=== PATIENT | female | born 1955 | race Caucasian/White ===

== ENCOUNTER 2016-11-04 18:24 | Emergency (ER) | payer OTHER ==
[~2016-11-04] VITALS: Ht 162.6 cm; Wt 88.0 kg
[2016-11-04 20:57] LABS: BASOPHIL % 0.4 % (0-2); PLATELET COUNT 219 x10^3mcL (130-400)
[2016-11-04 21:22] LABS: CALCIUM 8.9 mg/dL (8.5-10.1); CARBON DIOXIDE 25.7 mmol/L (21-32); CHLORIDE SERUM 107 mmol/L (98-107); CREATININE SERUM 0.4 mg/dL (0.6-1.0); GFR1 > 60 mL/min; GLUCOSE SERUM 96 mg/dL (74-106); POTASSIUM SERUM 3.2 mmol/L (3.5-5.1); SODIUM SERUM 140 mmol/L (136-145)
[2016-11-04 21:28] LABS: ALBUMIN 3.4 g/dL (3.4-5.0); ALKALINE PHOSPHATASE 89 U/L (46-116); ALT/SGPT 15 U/L (14-59); AST/SGOT 12 U/L (15-37); BILIRUBIN TOTAL 0.18 mg/dL (0.20-1.00); CHOLESTEROL 139 mg/dL (<200); TOTAL PROTEIN, SERUM 6.9 g/dL (6.4-8.2)
[2016-11-04 23:32] VITALS: BP 129/72
== END 2016-11-04 23:32 | disposition home or self-care (01) ==
LOC: ED 18:24
PROVIDERS: Specialist
DX: R51 Headache (principal); I10 Essential (primary) hypertension; R42 Dizziness and giddiness; F31.9 Bipolar disorder, unspecified; Z85.3 Personal history of malignant neoplasm of breast; Z90.89 Acquired absence of other organs
CPT/HCPCS: 83880; G0480; J1885; J2405; J3010; J7030

== ENCOUNTER 2019-11-30 01:02 | Emergency (ER) | payer OTHER ==
[2019-11-30 02:23] LABS: BASOPHIL % 1.1 % (0-2); PLATELET COUNT 170 x10^3mcL (130-400); RED CELL DISTRIBUTION WIDTH 14.5 % (11.5-14.5)
[2019-11-30 02:39] LABS: CALCIUM 8.5 mg/dL (8.5-10.1); CARBON DIOXIDE 20.3 mmol/L (21-32); CHLORIDE SERUM 109 mmol/L (98-107); CREATININE SERUM 0.6 mg/dL (0.6-1.0); GFR1 > 60 mL/min; GLUCOSE SERUM 111 mg/dL (74-106); POTASSIUM SERUM 3.8 mmol/L (3.5-5.1); SODIUM SERUM 143 mmol/L (136-145)
[2019-11-30 02:43] LABS: ALBUMIN 3.6 g/dL (3.4-5.0); ALKALINE PHOSPHATASE 76 U/L (46-116); ALT/SGPT 21 U/L (14-59); AST/SGOT 14 U/L (15-37); BILIRUBIN TOTAL 0.11 mg/dL (0.20-1.00); TOTAL PROTEIN, SERUM 7.2 g/dL (6.4-8.2)
[2019-11-30 02:45] LABS: AMPHETAMINE QUAL UR NONE DETECTED (See below)
--- NOTE | 2019-11-30 19:31 | NUR ---
Received intake for patient and neg COVID antigen result. Will continue to monitor for negative COVID PCR.
--- NOTE | 2019-11-30 20:02 | NUR ---
Called [facility] to see who are the designated contracted facilities associated with [facility] in [place]. Stacey - [phone] "I am just the answering service." She left my number with a nurse to call back. Aurelia - Called back and said that I would need to speak with a nurse on the call line (triage nurse) Carlene - [phone] Called and spoke to nurse and directed me with another number to [facility] [phone] On hold for a while. Will call back on Monday as first directed as nurse stated we would probably have to wait until they open on Monday.
[2019-12-02 08:25] VITALS: BP 146/98
== END 2019-12-02 08:25 | disposition home or self-care (01) ==
LOC: ED 01:02
PROVIDERS: Emergency Medicine
DX: F10.129 Alcohol abuse with intoxication, unspecified (principal); R45.851 Suicidal ideations; F32.9 Major depressive disorder, single episode, unspecified; Z98.890 Other specified postprocedural states; Z90.49 Acquired absence of other specified parts of digestive tract
CPT/HCPCS: G0480; J1630; J2060; Q0163; U0003-CS